=== PATIENT | female | born 1945 | race Caucasian/White ===

== ENCOUNTER 2017-01-03 15:44 | Emergency (ER) | payer MEDICARE, OTHER ==
[2017-01-03] MEDS ORDERED: Sodium Chloride 0.9% 10 ML Syringe FLUSH PRN (16:09)
[2017-01-03] MEDS ORDERED: Alum Hydroxide/Mag Hydroxide 10 ML, Lidocaine 2% 10 ML, Promethazine 12.5 MG PO ONE ×3 (16:09)
[2017-01-03] MEDS ORDERED: Sodium Chloride 0.9% 1,000 ML IV SCH (16:15)
[2017-01-03] MEDS ORDERED: GI Cocktail Oral Solution 30 ML PO ONE (16:21)
--- NOTE | 2017-01-03 16:49 | EDM.PDOC ---
ED HPI GI/ABDOMINAL - General Chief Complaint: Abdominal Pain Stated Complaint: abdominal pain Time Seen by Provider: 01/03/17 15:55 Source of Information: Reports: Patient History Limitations: Reports: No limitations - History of Present Illness INITIAL COMMENTS - FREE TEXT/NARRATIVE: Patient complains of mid epigastric pain that started last night. She took a suppository this AM and did have a large BM. This did not resolve her abdominal pain. She denies nausea or vomiting. She denies being able to pass gas but is able to belch. No fever or chills, no problems with urination. History includes a colonoscopy in July of 2016. This resulted in perforation with open repair by Dr. Land in [place]. States she has some burning in her chest as well. History of HTN, diabetes, hypercholesterolemia, hypothyroidism, no history of cancer, VT, or prior CVA. Surgical history also includes gall bladder and appendix removal as well as hysterectomy, leaving both ovaries. Symptom Onset Date: 01/02/17 Symptom Onset Time: 17:00 Timing/Duration: Reports: Sudden onset Location: generalized Quality: Reports: ache, cramping, fullness Severity: moderate Associated Symptoms (-Female): Reports: denies other symptoms - Related Data Allergies/ADRs: Allergies Allergy/AdvReac Type Severity Reaction Status Date / Time No Known Allergies Allergy Verified 01/03/17 15:59 Home Meds: Home Meds Ascorbate Calcium/Bioflavonoid [Peg-C 500 MG] 1 each PO DAILY 01/03/17 [ History] Aspirin 81 mg PO DAILY 01/03/17 [History] Calcium Carbonate/Vitamin D3 [Caltrate 600 + D Soft Chew Tab] 1 each PO BID [History] Cetirizine [ZyrTEC] 10 mg PO DAILY 01/03/17 [History] Cholecalciferol (Vitamin D3) [Vitamin D3] 1,000 units PO DAILY 01/03/17 [History ] Estrogens, Conjugated [Premarin Vaginal Crm] 0.5 gm VAG DAILY 01/03/17 [History] Ezetimibe [Zetia] 10 mg PO BEDTIME 01/03/17 [History] Fish Oil/[place]-3 Fatty Acids [Fish Oil] 1 each PO DAILY 01/03/17 [History] Glucosamine/D3/Boswellia Ivonne [Glucosamine Complex Tablet] 1 each PO DAILY [History] Levothyroxine [Synthroid] 50 mcg PO ACBREAKFAST 01/03/17 [History] Magnesium Oxide 400 mg PO DAILY 01/03/17 [History] Mometasone Furoate [Nasonex Fluker] 17 gm RAFAEL DAILY 01/03/17 [History] Multivitamin [Multivitamins] 1 each PO DAILY 01/03/17 [History] PARoxetine [Paxil] 20 mg PO DAILY 01/03/17 [History] Valsartan [Diovan] 160 mg PO DAILY 01/03/17 [History] atorvaSTATin [Lipitor] 80 mg PO BEDTIME 01/03/17 [History] metFORMIN HCl [Metformin HCl] 1,000 mg PO BID 01/03/17 [History] Social & Family History - Tobacco Use Smoking Status *Q: Unknown Ever Smoked ED ROS GENERAL - Review of Systems Review Of Systems: ROS reveals no pertinent complaints other than HPI. Constitutional: Reports: no symptoms HEENT: Reports: No symptoms Respiratory: Reports: No Symptoms Cardiovascular: Reports: No symptoms Endocrine: Reports: no symptoms GI/Abdominal: Reports: Abdominal pain, Constipation, Decreased appetite, Distension : Reports: no symptoms Musculoskeletal: Reports: no symptoms Skin: Reports: no symptoms Neurological: Reports: No Symptoms Psychiatric: Reports: No symptoms Hematologic/Lymphatic: Reports: no symptoms Immunologic: Reports: no symptoms ED EXAM, GI/ABD - Physical Exam Exam: See Below Exam Limited By: No limitations General Appearance: alert, WD/WN, no apparent distress Eyes: bilateral: EOMI Ears: normal external exam Head: atraumatic, normocephalic Neck: normal inspection, supple, non-tender, full range of motion Respiratory/Chest: no respiratory distress, lungs clear, normal breath sounds, no accessory muscle use, chest non-tender Cardiovascular: normal peripheral pulses, regular rate, rhythm, no edema, no gallop GI/Abdominal: absent bowel sounds, tenderness, distention, guarding Extremities: normal inspection, normal range of motion, non-tender, no pedal edema, normal capillary refill Neurological: alert, oriented, CN II-XII intact, normal cognition, normal gait Psychiatric: normal affect, normal mood Skin Exam: Warm, Dry, Intact, Normal color, No rash Lymphatic: no adenopathy Course - Vital Signs Last Recorded V/S: Last Vital Signs Temp 36.2 C 01/03/17 15:56 Pulse 75 01/03/17 15:56 Resp 16 01/03/17 15:56 BP 142/67 H 01/03/17 15:56 Pulse Ox 99 01/03/17 15:56 - Orders/Labs/Meds Orders: Active Orders 24 hr Category Date Time Status EKG Documentation Completion [RC] ROUTINE Care 01/03/17 16:09 Active Abdomen Pelvis w Cont [CT] Stat Exams 01/03/17 16:07 Taken Sodium Chloride 0.9% [Normal Saline] 1,000 ml Med 01/03/17 16:15 Active IV ASDIRECTED Sodium Chloride 0.9% [Saline Flush] Med 01/03/17 16:09 Active 10 ml FLUSH ASDIRECTED PRN Saline Lock Insert [OM.PC] Routine Oth 01/03/17 16:09 Ordered Medication Orders Sodium Chloride (Normal Saline) 1,000 mls @ 999 mls/hr IV ASDIRECTED DELIA Last Admin: 01/03/17 16:23 Dose: 999 mls/hr Sodium Chloride (Saline Flush) 10 ml FLUSH ASDIRECTED PRN PRN Reason: Keep Vein Open Labs: Laboratory Tests 01/03/17 01/03/17 01/03/17 Range/Units 16:24 16:24 16:24 WBC 9.7 (4.0-10.0) x10^3/uL RBC 4.46 (4.00-5.50) x10^6/uL Hgb 13.3 (12.0-16.0) g/dL Hct 41.1 (33.0-47.0) % MCV 92.2 (78.0-93.0) fL MCH 29.8 (26.0-32.0) pg MCHC 32.4 (32.0-36.0) g/dL RDW Coeff of Michela 13.2 (10.0-15.0) % Plt Count 212 (130-400) x10^3/uL Neut % (Auto) 80.5 H (50.0-80.0) % Lymph % (Auto) 11.5 L (25.0-50.0) % Dixon % (Auto) 6.9 (2.0-11.0) % Eos % (Auto) 1.0 (0.0-4.0) % Baso % (Auto) 0.1 L (0.2-1.2) % PT 10.5 (10.0-12.8) SEC INR 0.9 L (2.0-3.5) Sodium 143 (136-145) mmol/L Potassium 3.8 (3.5-5.1) mmol/L Chloride 103 (98-107) mmol/L Carbon Dioxide 30 (21-32) mmol/L BUN 17 (7-18) mg/dL Creatinine 0.9 (0.55-1.02) mg/dL Est Cr Clr Drug Dosing TNP Estimated GFR (MDRD) > 60 Glucose 92 (74-106) mg/dL Calcium 9.3 (8.5-10.1) mg/dL Creatine Kinase 61 (26-192) U/L Creatine Kinase Index Cancelled CK-MB (CK-2) Cancelled POC Troponin I (0.00-0.08) ng/mL C-Reactive Protein < 0.2 (<=0.9) mg/dL 01/03/17 Range/Units 16:31 WBC (4.0-10.0) x10^3/uL RBC (4.00-5.50) x10^6/uL Hgb (12.0-16.0) g/dL Hct (33.0-47.0) % MCV (78.0-93.0) fL MCH (26.0-32.0) pg MCHC (32.0-36.0) g/dL RDW Coeff of Michela (10.0-15.0) % Plt Count (130-400) x10^3/uL Neut % (Auto) (50.0-80.0) % Lymph % (Auto) (25.0-50.0) % Dixon % (Auto) (2.0-11.0) % Eos % (Auto) (0.0-4.0) % Baso % (Auto) (0.2-1.2) % PT (10.0-12.8) SEC INR (2.0-3.5) Sodium (136-145) mmol/L Potassium (3.5-5.1) mmol/L Chloride (98-107) mmol/L Carbon Dioxide (21-32) mmol/L BUN (7-18) mg/dL Creatinine (0.55-1.02) mg/dL Est Cr Clr Drug Dosing Estimated GFR (MDRD) Glucose (74-106) mg/dL Calcium (8.5-10.1) mg/dL Creatine Kinase (26-192) U/L Creatine Kinase Index CK-MB (CK-2) POC Troponin I 0.00 (0.00-0.08) ng/mL C-Reactive Protein (<=0.9) mg/dL Meds: Medications Generic Name Dose Route Start Last Admin Trade Name Freq PRN Reason Stop Dose Admin Sodium Chloride 1,000 mls @ 999 mls/hr 01/03/17 16:15 01/03/17 16:23 Normal Saline IV 999 mls/hr ASDIRECTED DELIA Administration Sodium Chloride 10 ml 01/03/17 16:09 Saline Flush FLUSH ASDIRECTED PRN Keep Vein Open Discontinued Medications Generic Name Dose Route Start Last Admin Trade Name Freq PRN Reason Stop Dose Admin Al Hydroxide/Mg Hydroxide 30 ml 01/03/17 16:21 01/03/17 16:30 Gi Cocktail PO 01/03/17 16:22 30 ml ONETIME ONE Administration Al Hydroxide/Mg Hydroxide 10 0 ml 01/03/17 16:09 ml/ Lidocaine HCl 10 ml/ PO 01/03/17 16:10 Promethazine HCl 12.5 mg ONETIME ONE - Radiology Interpretation Free Text/Narrative:: CT results indicate high grade bowel obstruction in the mid jejunum along the anterior aspect of the abdominal wall with a small amount of fluid interposed between the abnormal bowel loops per DR. ZAMORANO. He believes this obstruction is likely a result of an adhesion. Consult with Dr. Gutierrez at [facility] with regards to conservative treatment or surgical intervention. Patient has chosen to go to [place] for conservative treatment with possible surgery so that she is in one location for both outcomes. Dr. Gutierrez has accepted and we await a room number Departure - Departure Time of Disposition: 18:28 Disposition: DC/Tfer to [place] [id number] Condition: fair Clinical Impression: Intestinal adhesions with obstruction Forms: ED Department Discharge, Interfacility Transfer NEETA Additional Instructions: Patient given the option to treat conservatively here in [place] and have a possible transfer to [place] if surgery became necessary, or, to just go via private vehicle now to [facility] to have the conservative treatment and be in the same location in case surgical intervention was needed. She did choose to go to [place]. Dr. Gutierrez is accepting physician, room number 362 - Problem List & Annotations (1) Intestinal adhesions with obstruction SNOMED Code(s): 76709130 Code(s): K56.5 - INTESTINAL ADHESIONS W OBST (POSTPROCEDURAL) (POSTINFECTION ) Status: Acute Priority: Medium Current Visit: Yes - Problem List Review Problem List Initiated/Reviewed/Updated: Yes - My Orders Last 24 Hours: My Active Orders 01/03/17 16:07 Abdomen Pelvis w Cont [CT] Stat 01/03/17 16:09 EKG Documentation Completion [RC] ROUTINE Sodium Chloride 0.9% [Saline Flush] 10 ml FLUSH ASDIRECTED PRN Saline Lock Insert [OM.PC] Routine 01/03/17 16:15 Sodium Chloride 0.9% [Normal Saline] 1,000 ml IV ASDIRECTED - Assessment/Plan Last 24 Hours: My Active Orders 01/03/17 16:07 Abdomen Pelvis w Cont [CT] Stat 01/03/17 16:09 EKG Documentation Completion [RC] ROUTINE Sodium Chloride 0.9% [Saline Flush] 10 ml FLUSH ASDIRECTED PRN Saline Lock Insert [OM.PC] Routine 01/03/17 16:15 Sodium Chloride 0.9% [Normal Saline] 1,000 ml IV ASDIRECTED Assessment:: Bowel obstruction likely secondary to adhesion Plan: Patient given the option to treat conservatively here in [place] and have a possible transfer to [place] if surgery became necessary, or, to just go via private vehicle now to [place] in [place] to have the conservative treatment and be in the same location in case surgical intervention was needed. She did choose to go to [place]. Dr. Gutierrez is accepting physician, room number 362.
[2017-01-03 17:00] LABS: CHLORIDE,CL 103 mmol/L (98-107); SODIUM,NA 143 mmol/L (136-145)
[2017-01-03 18:22] VITALS: BP 136/85
== END 2017-01-03 18:30 | disposition other institution (70) ==
LOC: VM.ED 15:44
DX: K56.5 Intestinal adhesions [bands] with obstruction (postinfection) (principal); Z79.82 Long term (current) use of aspirin; Z79.899 Other long term (current) drug therapy
CPT/HCPCS: 36415; 74177; 80048; 82550; 84484; 85025; 85610; 86140; 93005; 96360; 99285; A9270; J7030

== ENCOUNTER 2024-09-10 13:51 | Emergency (ER) | payer MEDICARE, OTHER | END 2024-09-10 15:26 | disposition home or self-care (01) | LOC: VM.ED 13:51 | DX: M25.562 Pain in left knee (principal); I10 Essential (primary) hypertension; E78.00 Pure hypercholesterolemia, unspecified; E11.9 Type 2 diabetes mellitus without complications; E03.9 Hypothyroidism, unspecified; Z79.899 Other long term (current) drug therapy; Z79.890 Hormone replacement therapy; Z79.82 Long term (current) use of aspirin; Z79.84 Long term (current) use of oral hypoglycemic drugs | CPT/HCPCS: 73562-LT; 99283 ==

== ENCOUNTER 2025-04-02 19:37 | Emergency (ER) | payer MEDICARE, OTHER ==
[2025-04-02] MEDS: Take Home: Acetaminophen/HYDROcodone 325-5 MG, 5 Tab Pack PO ONE (20:08)
[2025-04-02] MEDS: Acetaminophen/HYDROcodone 325-5 MG Tab PO ONE (20:08)
== END 2025-04-02 20:12 | disposition home or self-care (01) ==
LOC: VM.ED 19:37
DX: M54.41 Lumbago with sciatica, right side (principal); E78.00 Pure hypercholesterolemia, unspecified; I10 Essential (primary) hypertension; E11.9 Type 2 diabetes mellitus without complications; E03.9 Hypothyroidism, unspecified; Z79.82 Long term (current) use of aspirin; Z79.899 Other long term (current) drug therapy
CPT/HCPCS: 99283; 99284; A9270-GY

== ENCOUNTER 2025-04-04 14:54 | Emergency (ER) | payer MEDICARE, OTHER ==
[2025-04-04] MEDS: Ketorolac 15 MG/ML SDV IM ONE (15:33)
[2025-04-04] MEDS: Take Home: Cyclobenzaprine 10 MG Tab, 4 Tab Pack PO ONE (16:20)
== END 2025-04-04 16:25 | disposition home or self-care (01) ==
LOC: VM.ED 14:54
DX: M54.41 Lumbago with sciatica, right side (principal); E78.00 Pure hypercholesterolemia, unspecified; I10 Essential (primary) hypertension; E11.9 Type 2 diabetes mellitus without complications; E03.9 Hypothyroidism, unspecified; Z79.82 Long term (current) use of aspirin; Z79.899 Other long term (current) drug therapy; Z79.890 Hormone replacement therapy; Z79.84 Long term (current) use of oral hypoglycemic drugs
CPT/HCPCS: 96372; 99283; 99284; A9270-GY; J1885

== ENCOUNTER 2025-04-13 11:58 | Emergency (ER) | payer MEDICARE, OTHER | END 2025-04-13 12:30 | disposition home or self-care (01) | LOC: VM.ED 11:58 | DX: M54.16 Radiculopathy, lumbar region (principal); I10 Essential (primary) hypertension; E11.9 Type 2 diabetes mellitus without complications; E03.9 Hypothyroidism, unspecified; M19.90 Unspecified osteoarthritis, unspecified site; Z79.890 Hormone replacement therapy; Z79.899 Other long term (current) drug therapy; Z79.82 Long term (current) use of aspirin | CPT/HCPCS: 99282; 99283 ==

== ENCOUNTER 2025-04-15 08:07 | Emergency (ER) | payer MEDICARE, OTHER ==
[2025-04-15] MEDS: Ketorolac 30 MG/ML SDV IM ONE (08:43)
[2025-04-15] MEDS: LORazepam 2 MG/ML SDV IM ONE (08:44)
== END 2025-04-15 09:02 | disposition home or self-care (01) ==
LOC: VM.ED 08:07
DX: M54.16 Radiculopathy, lumbar region (principal); E78.00 Pure hypercholesterolemia, unspecified; E11.9 Type 2 diabetes mellitus without complications; E03.9 Hypothyroidism, unspecified; Z79.899 Other long term (current) drug therapy; Z79.82 Long term (current) use of aspirin
CPT/HCPCS: 72148; 96372; 99282; 99283; J1885; J2060